=== PATIENT | male | born 1940 | race Caucasian/White ===

== ENCOUNTER 2016-07-13 10:00 | Outpatient (RCR) | payer OTHER | END 2016-08-07 | disposition home or self-care (01) | LOC: PTY 10:00 | DX: M25.561 Pain in right knee (principal); G89.29 Other chronic pain ==

== ENCOUNTER 2016-08-13 09:39 | Outpatient (RCR) | payer OTHER | END 2016-09-04 | disposition home or self-care (01) | LOC: PTY 09:39 | DX: M25.561 Pain in right knee (principal); G89.29 Other chronic pain ==

== ENCOUNTER 2016-09-10 09:45 | Outpatient (RCR) | payer OTHER | END 2016-10-05 | disposition home or self-care (01) | LOC: PTY 09:45 | DX: M25.561 Pain in right knee (principal); G89.29 Other chronic pain ==